=== PATIENT | male | born 1945 | race Caucasian/White ===

== ENCOUNTER 2023-03-24 16:39 | Emergency (ER) | payer MEDICARE, SELFPAY ==
--- NOTE | ~2023-03-24 | CT_ITS ---
EXAMINATION: CT brain wo con DATE: 03/24/2023 18:15 INDICATION: Fall with head lacerations TECHNIQUE: Computed tomography (CT) of the head was performed without intravenous contrast. Sagittal and coronal reconstructions were performed. The mA was adjusted according to patient size. Iterative reconstruction technique was employed. The dose-length product was 605.33 mGy-cm. COMPARISON: None FINDINGS: No fracture. No acute intracranial hemorrhage, acute infarction or abnormal extra axial fluid collect ion. There is mild scattered white matter hypoattenuation consistent with chronic small vessel ischem ic disease. Symmetric prominence of the sulci consistent with mild age-appropriate diffuse cerebral v olume loss. Ventricles are normal and symmetric. No mass/mass effect. The orbits, paranasal sinuses and mastoid air cells are normal. IMPRESSION: 1. Normal aging brain. No fracture or acute intracranial process. Reviewed, dictated and finalized at location A.
[2023-03-24 16:41] VITALS: BP 157/86; PULSE 86; RESP 18; TEMP 36.2; O2SAT 98
--- NOTE | 2023-03-24 17:42 | ED.GENADULT ---
HPI - General Adult General Chief complaint: Fall Stated complaint: fall, head injury Time Seen by Provider: 03/24/23 17:07 Source: patient Mode of arrival: ambulatory Limitations: no limitations History of Present Illness HPI narrative: This is a 77-year-old male who presents to the ED with chief complaint of a head laceration following an injury that occurred last night. Patient states that he was drinking with his on the back deck when he accidentally stumbled and hit his head on a wooden pole. Patient is able to recall the entirety of the events. Denies any LOC. Denies any current headache, numbness, weakness, neck stiffness or pain, any further site of injury. He is on baby aspirin daily. Bleeding is controlled on arrival. The wound dressed with dressing and mupirocin ointment Related Data Allergies Allergy/AdvReac Type Severity Reaction Status Date / Time No Known Allergies Allergy Verified 03/24/23 17:52 Review of Systems Review of Systems: All systems as dictated in HPI Exam Narrative: GENERAL: Well-appearing, well-nourished, and in no acute distress. HEAD: Normocephalic, atraumatic. EYES: PERRLA and EOMI. ENT: Nares clear, no rhinorrhea or epistaxis. Mucous membranes moist. Oropharynx without tonsillar hypertrophy exudate or other lesions. NECK: Supple. No adenopathy or masses. No cervical spinal tenderness. CHEST: No respiratory distress. Clear to auscultation. No wheezes rales or rhonchi HEART: Regular rate and rhythm. No murmur heard. Normal peripheral pulses. ABDOMEN: Soft, nontender, nondistended, normal active bowel sounds. MSK: Normal range of motion. No edema. SKIN: There are 2 irregular superficial lacerations noted to the right parietal scalp. They are both about 3 cm in length. Bleeding controlled. Lacerations are very well approximated. NEURO: Alert and oriented x3. No focal deficits. PSYCH: Normal mood and affect. Course Vital Signs Vital signs: Vital Signs Temperature 97.2 F L 03/24/23 16:41 Pulse Rate 86 03/24/23 16:41 Respiratory Rate 18 03/24/23 16:41 Blood Pressure 157/86 H 03/24/23 16:41 Pulse Oximetry 98 03/24/23 16:41 Oxygen Delivery Room Air 03/24/23 16:41 Temperature 97.2 F L 03/24/23 16:41 Pulse Rate 86 03/24/23 16:41 Respiratory Rate 18 03/24/23 16:41 Blood Pressure 157/86 H 03/24/23 16:41 Pulse Oximetry 98 03/24/23 16:41 Oxygen Delivery Room Air 03/24/23 16:41 Procedures Laceration Laceration 1: Date: 03/24/23 Time: 16:41 Site: scalp Side (If applicable): right Size (cm): 3 Description: irregular Depth: simple, single layer Local Anesthetic: none Pre-repair: wound explored and irrigated extensively ====== Skin Level ====== Skin layer closed with: steri strips ====== Subcutaneous Layer ====== ====== Muscle Layer ====== ====== Tendon Layer ====== Laceration 2: Date: 03/24/23 Time: 16:41 Site: scalp Side (If applicable): right Size (cm): 2 Description: irregular Depth: simple, single layer Pre-repair: wound explored and irrigated extensively ====== Skin Level ====== Skin layer closed with: steri strips ====== Subcutaneous Layer ====== ====== Muscle Layer ====== ====== Tendon Layer ====== Medical Decision Making MDM Narrative Medical decision making narrative: This is a 77-year-old male who presents to the ED with chief complaint of head injury that occurred yesterday evening. He has a right parietal scalp laceration. Vitals are normal. No tenderness throughout the C-spine or scalp. He had no LOC. No neurologic signs or symptoms today. CT head is negative. The scalp wounds were irregular. Well cleaned, irrigated and primarily closed with Steri-Strips today. Loose approximation. Laceration instructions given. Pt will be dischar
== END 2023-03-24 19:00 | disposition home or self-care (01) ==
PROVIDERS: Emergency Provider Physician Assistant; PCP Student in an Organized Health Care Education/Training Program
DX: S01.91XA Laceration without foreign body of unspecified part of head, initial encounter (principal); W18.39XA Other fall on same level, initial encounter
CPT/HCPCS: 70450; 99284